=== PATIENT | female | born 2000 | race Caucasian/White ===

== ENCOUNTER 2023-11-21 09:10 | Inpatient (IN) | payer OTHER ==
[~2023-11-21] VITALS: Ht 165.1 cm; Wt 88.5 kg
[2023-11-21] MEDS ORDERED: PRENATAL TABLE1 EAC1 (09:26)
[2023-11-21] MEDS ORDERED: FOLIC ACID20 MG (09:28)
[2023-11-21] MEDS ORDERED: MAGNESIUM SULFATE IN WATER 100 ML IV ONE (09:30)
[2023-11-21] MEDS ORDERED: RINGERS SOLUTION,LACTATED 1,000 ML IV SCH (09:30)
[2023-11-21] MEDS ORDERED: MAGNESIUM SULFATE IN WATER 500 ML IV SCH (09:30)
[2023-11-21 10:06] LABS: HEMATOCRIT 33.3 % (36.0-45.00); HEMOGLOBIN 11.1 g/dL (12.0-15.00); MEAN CELL VOLUME 100.2 fL (80.00-100.00); MEAN CORPUSCULAR HEMOGLOBIN 33.4 pg (27.00-32.0); MEAN CORPUSCULAR HGB CONC 33.4 g/dl (32.0-36.0); PLATELET COUNT 170 K/uL (150-450); RED BLOOD COUNT 3.32 M/uL (4.00-6.00); RED CELL DISTRIBUTION WIDTH 14.3 % (11.5-14.5)
[2023-11-21] MEDS ORDERED: TERBUTALINE SULFATE 1 MG/ML AMPUL ONE (10:54)
[2023-11-21] MEDS ORDERED: MORPHINE SULFATE 4 MG/ML VIAL IV ONE (11:00)
[2023-11-21] MEDS ORDERED: TERBUTALINE SULFATE 1 MG/ML AMPUL SUBCUTANEO ONE (11:00)
[2023-11-21] MEDS ORDERED: ACETAMINOPHEN 325 MG TABLET PO ONE ×2 (15:00)
[2023-11-21] MEDS ORDERED: ACETAMINOPHEN 500 MG GEL..CAP PO ONE (15:00)
[2023-11-21] MEDS ORDERED: ACETAMINOPHEN 325 MG TABLET PO PRN (16:00)
[2023-11-22] MEDS ORDERED: MORPHINE SULFATE 4 MG/ML CARTRIDGE IV PRN (04:00)
[2023-11-22 05:03] LABS: HEMATOCRIT 31.8 % (36.0-45.00); HEMOGLOBIN 10.9 g/dL (12.0-15.00); MEAN CELL VOLUME 101.2 fL (80.00-100.00); MEAN CORPUSCULAR HEMOGLOBIN 34.7 pg (27.00-32.0); MEAN CORPUSCULAR HGB CONC 34.3 g/dl (32.0-36.0); PLATELET COUNT 175 K/uL (150-450); RED BLOOD COUNT 3.14 M/uL (4.00-6.00); RED CELL DISTRIBUTION WIDTH 14.3 % (11.5-14.5)
[2023-11-22 05:20] LABS: ALBUMIN 2.9 gm/dL (3.4-5.0); BILIRUBIN TOTAL 0.61 mg/dL (0.3-1.2); CALCIUM 8.6 mg/dL (8.5-10.1); CREATININE SERUM 0.68 mg/dL (0.55-1.02); GFR 108.2; GLOBULINA 3.9 G/DL (2.4-3.5); POTASSIUM 4.26 mEq/L (3.5-5.1); TOTAL PROTEIN 6.8 gm/dL (6.4-8.2)
[2023-11-22 07:49] LABS: URINE APPEARANCE Cloudy; URINE BILIRRUBIN Negative (NEGATIVE); URINE BLOOD Negative; URINE COLOR Dark Yellow; URINE GLUCOSE Negative (NEGATIVE); URINE LEUKOCYTE Negative; URINE NITRATE Negative; URINE PROTEIN 30 (NEGATIVE)
[2023-11-22 07:53] LABS: URINE BACTERIA 8115.5 uL (0.0-1933); URINE EPITHELIAL CELLS 145.9 uL (0.0-38.8); URINE RBC 7.9 uL (0.0-20.8); URINE WBC 52.7 uL (0.0-23.2)
[2023-11-22] MEDS ORDERED: BETAMETHASONE ACETATE,SOD PHOS 30 MG/5 ML ML IM SCH (09:00)
[2023-11-22] MEDS ORDERED: NITROFURANTOIN MONOHYD/M-CRYST 100 MG CAPSULE PO SCH (11:16)
[2023-11-22] MEDS ORDERED: NIFEDIPINE 30 MG TAB.SA.OSM PO SCH (11:17)
[2023-11-22] MEDS ORDERED: FAMOTIDINE/PF 20 MG/2 ML VIAL IV SCH (11:30)
== END 2023-11-24 09:17 | disposition home or self-care (01) | DRG 833 ==
LOC: LDR 09:10 → OB/GYN 11-22 19:26
PROVIDERS: ADMIT Obstetrics & Gynecology; ATTEND Obstetrics & Gynecology
PROC: 4A1HXCZ Monitoring of Products of Conception, Cardiac Rate, External Approach (ICD-10-PCS; principal; 2023-11-21)
PROC: BY4FZZZ Ultrasonography of Third Trimester, Single Fetus (ICD-10-PCS; 2023-11-21)
PROC: BW40ZZZ Ultrasonography of Abdomen (ICD-10-PCS; 2023-11-22)
DX: O60.03 Preterm labor without delivery, third trimester (principal); Z3A.34 34 weeks gestation of pregnancy; Z20.822 Contact with and (suspected) exposure to COVID-19

== ENCOUNTER 2023-12-04 12:27 | Outpatient (CLI) | payer OTHER ==
[~2023-12-04 12:27] MED LIST: FOLIC ACID20 MG; PRENATAL TABLE1 EAC1
== END 2023-12-04 12:50 | disposition home or self-care (01) ==
LOC: NST 12:27
PROVIDERS: ATTEND Obstetrics & Gynecology Gynecology
DX: Z34.83 Encounter for supervision of other normal pregnancy, third trimester (principal)

== ENCOUNTER 2023-12-17 19:32 | Outpatient (CLI) | payer OTHER ==
[~2023-12-17] VITALS: Ht 165.1 cm; Wt 89.4 kg
[2023-12-17] MEDS ORDERED: PEPCID AC20 MG PO (19:55)
[2023-12-17] MEDS ORDERED: IRON236 MG PO (19:55)
[2023-12-17] MEDS ORDERED: MORPHINE SULFATE 4 MG/ML CARTRIDGE IV PRN (23:15)
[2023-12-17] MEDS ORDERED: RINGERS SOLUTION,LACTATED 1,000 ML IV SCH (23:15)
== END 2023-12-18 09:47 | disposition home or self-care (01) ==
LOC: OBS/DEL 19:32
PROVIDERS: ATTEND Obstetrics & Gynecology
DX: O26.893 Other specified pregnancy related conditions, third trimester (principal); Z3A.38 38 weeks gestation of pregnancy; R10.2 Pelvic and perineal pain

== ENCOUNTER 2023-12-23 18:00 | Inpatient (IN) | payer OTHER ==
[~2023-12-23] VITALS: Ht 165.1 cm; Wt 3.2 kg
[~2023-12-23 18:00] MED LIST changes: +IRON236 MG PO; +PEPCID AC20 MG PO
[2023-12-23] MEDS ORDERED: MORPHINE SULFATE 4 MG/ML CARTRIDGE IV PRN (18:15)
[2023-12-23] MEDS ORDERED: RINGERS SOLUTION,LACTATED 1,000 ML IV SCH (18:15)
[2023-12-23 18:30] LABS: HEMATOCRIT 33.3 % (36.0-45.00); HEMOGLOBIN 11.4 g/dL (12.0-15.00); MEAN CORPUSCULAR HEMOGLOBIN 34.5 pg (27.00-32.0); MEAN CORPUSCULAR HGB CONC 34.1 g/dl (32.0-36.0); PLATELET COUNT 176 K/uL (150-450); RED CELL DISTRIBUTION WIDTH 14.4 % (11.5-14.5)
[2023-12-23 18:57] LABS: INR < 0.93; PARTIAL THROMBOPLASTIN TIME 27.6 SECONDS (22.0-34.0); PROTHROMBIN TIME 9.7 SECONDS (9.0-11.5)
[2023-12-23 18:59] LABS: ALBUMIN 2.8 gm/dL (3.4-5.0); BILIRUBIN TOTAL 0.3 mg/dL (0.3-1.2); CREATININE SERUM 0.7 mg/dL (0.55-1.02); GFR 104.64; POTASSIUM 4.05 mEq/L (3.5-5.1); TOTAL PROTEIN 6.8 gm/dL (6.4-8.2)
[2023-12-24] MEDS ORDERED: LIDOCAINE HCL 1% 10ML VIAL ONE (01:30)
[2023-12-24] MEDS ORDERED: ERYTHROMYCIN BASE 1 GM TUBE OP ONE ×2 (01:30→14:30)
[2023-12-24] MEDS ORDERED: CHLORHEXIDINE GLUCONATE 120 ML BOTTLE TOP ONE (01:30)
[2023-12-24] MEDS ORDERED: OXYTOCIN 20 UNITS/1000ML RL PIGGYBAG IV ONE (01:30)
[2023-12-24] MEDS ORDERED: OXYTOCIN 20 UNITS/500ML RL PIGGYBAG IV ONE (04:24)
[2023-12-24] MEDS ORDERED: OXYTOCIN 500 ML IV ONE (04:45)
[2023-12-24] MEDS ORDERED: CEFAZOLIN SODIUM 1,000 MG VIAL ONE (07:08)
[2023-12-24] MEDS ORDERED: OXYTOCIN 10 UNITS/ML VIAL ONE (07:18)
[2023-12-24] MEDS ORDERED: ERYTHROMYCIN BASE 3.5 GM OINT...G. OP ONE (07:18)
[2023-12-24] MEDS ORDERED: CEFAZOLIN SODIUM 1,000 MG VIAL IV ONE (08:45)
[2023-12-24] MEDS ORDERED: DOCUSATE SODIUM 100MG CAP PO SCH (09:00)
[2023-12-24] MEDS ORDERED: PNV,CALCIUM 72/IRON/FOLIC ACID 1 TAB TABLET PO SCH (09:00)
[2023-12-24] MEDS ORDERED: SIMETHICONE 125 MG CAPSULE PO SCH (09:00)
[2023-12-24] MEDS ORDERED: MORPHINE SULFATE 4 MG/ML CARTRIDGE IV SCH (09:00)
[2023-12-24] MEDS ORDERED: KETOROLAC TROMETHAMINE 30 MG VIAL ONE (10:59)
[2023-12-24] MEDS ORDERED: KETOROLAC TROMETHAMINE 30 MG VIAL IV SCH (12:00)
[2023-12-24] MEDS ORDERED: OXYTOCIN 10 UNITS/ML VIAL IV ONE (14:30)
[2023-12-24] MEDS ORDERED: GABAPENTIN 300 MG CAPSULE PO SCH (17:00)
[2023-12-25] MEDS ORDERED: ACETAMINOPHEN 500 MG GEL..CAP PO SCH (06:00)
[2023-12-25 06:39] LABS: HEMATOCRIT 29.7 % (36.0-45.00); MEAN CELL VOLUME 101.5 fL (80.00-100.00); MEAN CORPUSCULAR HGB CONC 33.1 g/dl (32.0-36.0); RED BLOOD COUNT 2.92 M/uL (4.00-6.00); RED CELL DISTRIBUTION WIDTH 14.6 % (11.5-14.5)
[2023-12-25 06:41] LABS: HEMOGLOBIN 9.8 g/dL (12.0-15.00); MEAN CORPUSCULAR HEMOGLOBIN 33.5 pg (27.00-32.0); PLATELET COUNT 145 K/uL (150-450)
[2023-12-25] MEDS ORDERED: IBUprofen 600 MG TABLET PO SCH (12:00)
== END 2023-12-26 13:58 | disposition home or self-care (01) | DRG 788 ==
LOC: LDR 18:00 → OB/GYN 18:00 → LDR 20:02 → O/R 12-24 07:47 → OB/GYN 12-24 11:14
PROVIDERS: Obstetrics & Gynecology Gynecology; ADMIT Obstetrics & Gynecology; ATTEND Obstetrics & Gynecology
PROC: 4A1HXCZ Monitoring of Products of Conception, Cardiac Rate, External Approach (ICD-10-PCS; 2023-12-24)
PROC: 10D00Z1 Extraction of Products of Conception, Low, Open Approach (ICD-10-PCS; principal; 2023-12-24 07:00)
DX: O82 Encounter for cesarean delivery without indication (principal); O62.1 Secondary uterine inertia; Z3A.39 39 weeks gestation of pregnancy; Z37.0 Single live birth; Z20.822 Contact with and (suspected) exposure to COVID-19